=== PATIENT | male | born 1945 | race Caucasian/White ===

== ENCOUNTER 2016-05-27 20:02 | Inpatient (IN) | payer OTHER ==
[~2016-05-27] VITALS: Ht 165.1 cm; Wt 109.5 kg
[~2016-05-27 20:02] MED LIST: ASPIRIN E.C.81 M1 PO; Advair HFA 115/21 IH; ERGOCALCIF50000 UNIT PO; FEOSOL325 MG PO; FLOMAX0.4 MG PO; FUROSEMIDE40 MG PO; Flomax PO; ISOSORBIDE MONO30 MG PO; ISOSORBIDE MONO60 MG PO; KEFLEX500 MG PO; LANTUS 10100 UNITS/ SC; LANTUS 3 M100 UNITS/ SC; LASIX20 MG PO; LASIX40 MG PO; LOPRESSOR25 MG PO; NEXIUM20 MG PO; NITROSTAT0.4 MG SL; NOVOLOG 10100 UNITS/ SC; NOVOLOG PE100 UNITS/ SC; PERCOCET 5/31 TABLET PO; PRAVASTATIN SOD40 MG PO; PREDNISONE10 MG PO; SENOKOT S,PE1 TABLET PO; ST. JOSEPH ASPI81 MG PO; TOPROL XL25 MG PO; TRADJENTA5 MG PO; Tylenol Regular Stre PO; ULORIC40 MG PO; VIAGRA50 MG PO; Vitamin D, Drisdol PO; Zocor PO; [UNRECOGNIZED DRUG - OTHER] PO; oxyCODONE PO
[2016-05-27 20:55] LABS: HEMATOCRIT 30.1 % (38.0-50.0); MCH 27.7 PG (29.0-34.0); MCHC 32.9 G/DL (30.0-36.0); MCV 84.3 FL (86-99); MEAN PLAT.VOLUME 9.4 uM^3 (9.0-12.4); PLATELET COUNT 319 K/uL (156-360); RBC DIS.WIDTH-CV 14.1 % (11.8-14.6); RBC DIS.WIDTH-SD 41.5 % (39-53); RED BLOOD COUNT 3.57 M/uL (4.00-5.50); WHITE BLOOD COUNT 8.3 K/uL (4.1-10.2)
[2016-05-27 21:04] LABS: CHLORIDE 98 mEq/L (99-109); POTASSIUM 4.3 mEq/L (3.7-5.4); SODIUM 131 mEq/L (136-147)
[2016-05-27 21:05] LABS: GLUCOSE 305 mg/dL (70-99)
[2016-05-27 21:07] LABS: ANION GAP 13 MEQ/L (2-14)
[2016-05-27 21:09] LABS: GFR ESTIMATE (CALCULATED) 20 mL/min/
[2016-05-27 21:10] LABS: UREA NITROGEN (BUN) 72 mg/dL (9-23)
[2016-05-27 22:20] LABS: ADD MIUA? YES; BILIRUBIN NEGATIVE; BLOOD NEGATIVE; COLOR YELLOW ((YELLOW)); GLUCOSE (STRIP) NEGATIVE; KETONES NEGATIVE; LEUKOCYTES NEGATIVE; NITRITE NEGATIVE; PH, URINE 5.5 (5-8); PROTEIN (STRIP) TRACE; SPECIFIC GRAVITY 1.019 (1.000-1.030); UROBILINOGEN 0.2 MG/DL (0.2-1.0)
[2016-05-27 22:32] LABS: BACTERIA NONE SEEN; CASTS NONE SEEN /LPF; CRYSTALS NONE SEEN; EPITHELIAL CELLS RARE; MUCUS NONE SEEN; PATHOLOGICAL CAST NONE SEEN; SMALL ROUND CELL NONE SEEN; UCUL ADDED? NO; WHITE BLOOD CELLS 0-5 /HPF (0-5); YEAST-LIKE CELL NONE SEEN
[2016-05-27 22:33] LABS: CARBON DIOXIDE (BICARBONATE) 25.1 MEQ/L (20-31)
[2016-05-27 23:07] VITALS: BP 125/68
[2016-05-27] MEDS ORDERED: NOVOLOG 10100 UNITS/ SC (23:15)
[2016-05-27] MEDS ORDERED: CIPRO500 MG PO (23:16)
[2016-05-27] MEDS ORDERED: CALCITRIOL0.25 MCG PO (23:16)
[2016-05-27 23:33] VITALS: BP 116/65
[2016-05-28] VITALS (14 sets, daily range): BP systolic 118–149; BP diastolic 57–78
[2016-05-28 02:00] LABS: EOSINOPHIL (%) 1.6 % (0-5); EOSINOPHIL COUNT 0.1 K/uL (0-0.3); IMMATURE GRANULOCYTE (%) 0.4 % (0.0-0.7); LYMPHOCYTE COUNT 0.9 K/uL (1.0-2.8); MONOCYTE (%) 11.2 % (3-12); MONOCYTE COUNT 0.9 K/uL (0-0.8); NEUTROPHIL (%) 75.2 % (45-76); NEUTROPHIL COUNT 6.1 K/uL (1.8-6.4)
[2016-05-28 02:31] LABS: POINT-OF-CARE USER ID AHSUCEG
[2016-05-28 07:01] LABS: MCHC 32.1 G/DL (30.0-36.0); MCV 84.3 FL (86-99); MEAN PLAT.VOLUME 9.5 uM^3 (9.0-12.4); PLATELET COUNT 307 K/uL (156-360); RBC DIS.WIDTH-CV 14.5 % (11.8-14.6); RBC DIS.WIDTH-SD 44.5 % (39-53); RED BLOOD COUNT 3.44 M/uL (4.00-5.50); WHITE BLOOD COUNT 8.2 K/uL (4.1-10.2)
[2016-05-28 07:13] LABS: EOSINOPHIL (%) 2.9 % (0-5); EOSINOPHIL COUNT 0.2 K/uL (0-0.3); IMMATURE GRANULOCYTE (%) 0.2 % (0.0-0.7); LYMPHOCYTE COUNT 2.1 K/uL (1.0-2.8); MONOCYTE COUNT 1.4 K/uL (0-0.8); NEUTROPHIL (%) 53.8 % (45-76); NEUTROPHIL COUNT 4.4 K/uL (1.8-6.4)
[2016-05-28 07:18] LABS: ANION GAP 9 MEQ/L (2-14); C-REACTIVE PROTEIN 193.4 MG/L (0-10); CHLORIDE 99 MEQ/L (99-109); GFR ESTIMATE (CALCULATED) 23 mL/min/; POTASSIUM 4.4 MEQ/L (3.7-5.4); SAMPLE HEMOLYSIS CHECK 0; SAMPLE ICTERIC CHECK 0; SAMPLE LIPEMIA CHECK 0; SODIUM 132 MEQ/L (136-147); UREA NITROGEN (BUN) 70 mg/dL (9-23)
[2016-05-28 07:20] LABS: GLUCOSE 134 mg/dL (70-99)
[2016-05-28 08:57] LABS: ERTH.SED.RATE 48 MM/HR (0-20)
[2016-05-29] VITALS: BP 136/65
[2016-05-29 06:32] LABS: HEMATOCRIT 28.5 % (38.0-50.0); MCH 26.8 PG (29.0-34.0); MCHC 31.9 G/DL (30.0-36.0); MCV 83.8 FL (86-99); MEAN PLAT.VOLUME 9.2 uM^3 (9.0-12.4); PLATELET COUNT 338 K/uL (156-360); RBC DIS.WIDTH-CV 14.3 % (11.8-14.6); RBC DIS.WIDTH-SD 44.1 % (39-53); WHITE BLOOD COUNT 6.3 K/uL (4.1-10.2)
[2016-05-29 06:52] LABS: ALKALINE PHOSPHATASE 48 IU/L (3-129); ANION GAP 11 MEQ/L (2-14); CHLORIDE 100 MEQ/L (99-109); GFR ESTIMATE (CALCULATED) 21 mL/min/; GLUCOSE 140 mg/dL (70-99); POTASSIUM 4.4 MEQ/L (3.7-5.4); SAMPLE HEMOLYSIS CHECK 0; SAMPLE ICTERIC CHECK 0; SAMPLE LIPEMIA CHECK 0; SODIUM 133 MEQ/L (136-147); TOTAL BILIRUBIN 0.4 MG/DL (0.0-1.0); UREA NITROGEN (BUN) 70 mg/dL (9-23)
[2016-05-29 07:06] LABS: EOSINOPHIL (%) 6.2 % (0-5); EOSINOPHIL COUNT 0.4 K/uL (0-0.3); IMMATURE GRANULOCYTE (%) 0.3 % (0.0-0.7); LYMPHOCYTE COUNT 1.5 K/uL (1.0-2.8); MONOCYTE (%) 21.7 % (3-12); MONOCYTE COUNT 1.4 K/uL (0-0.8); NEUTROPHIL (%) 48.5 % (45-76); NEUTROPHIL COUNT 3.1 K/uL (1.8-6.4)
[2016-05-29 07:20] VITALS: BP 113/58
[2016-05-29 10:07] LABS: URIC ACID 6.9 mg/dL (3.1-9.2)
[2016-05-29 11:20] VITALS: BP 120/62
[2016-05-29 15:40] VITALS: BP 104/56
[2016-05-29 23:46] VITALS: BP 131/64
[2016-05-30 06:30] LABS: ANION GAP 9 MEQ/L (2-14); CHLORIDE 102 MEQ/L (99-109); GFR ESTIMATE (CALCULATED) 20 mL/min/; POTASSIUM 4.1 MEQ/L (3.7-5.4); SAMPLE HEMOLYSIS CHECK 0; SAMPLE ICTERIC CHECK 0; SAMPLE LIPEMIA CHECK 0; SODIUM 134 MEQ/L (136-147); UREA NITROGEN (BUN) 71 mg/dL (9-23)
[2016-05-30 06:31] LABS: GLUCOSE 100 mg/dL (70-99)
[2016-05-30 06:45] VITALS: BP 133/72
[2016-05-30 07:46] VITALS: BP 133/72
[2016-05-30 14:58] VITALS: BP 120/71
[2016-05-30 23:26] VITALS: BP 144/66
[2016-05-31 05:48] LABS: ANION GAP 8 MEQ/L (2-14); CHLORIDE 101 MEQ/L (99-109); GFR ESTIMATE (CALCULATED) 21 mL/min/; GLUCOSE 78 mg/dL (70-99); POTASSIUM 4.4 MEQ/L (3.7-5.4); SAMPLE HEMOLYSIS CHECK 0; SAMPLE ICTERIC CHECK 0; SAMPLE LIPEMIA CHECK 0; SODIUM 133 MEQ/L (136-147); UREA NITROGEN (BUN) 70 mg/dL (9-23)
[2016-05-31 07:52] VITALS: BP 121/60
[2016-05-31 15:37] VITALS: BP 145/81
[2016-05-31 23:16] VITALS: BP 163/75
[2016-06-01 07:42] LABS: ANION GAP 8 MEQ/L (2-14); CHLORIDE 99 MEQ/L (99-109); SAMPLE HEMOLYSIS CHECK 1; SAMPLE ICTERIC CHECK 0; SAMPLE LIPEMIA CHECK 0; SODIUM 130 MEQ/L (136-147); UREA NITROGEN (BUN) 67 mg/dL (9-23)
[2016-06-01 07:58] VITALS: BP 144/70
[2016-06-01 08:00] LABS: GFR ESTIMATE (CALCULATED) 27 mL/min/; GLUCOSE 188 mg/dL (70-99)
[2016-06-01 08:01] LABS: VANCOMYCIN, TROUGH 12.6 MCG/ML (10-20)
[2016-06-01] MEDS ORDERED: DYNAPEN 250 MG250 MG PO (12:31)
[2016-06-01] MEDS ORDERED: OXYCODONE HCL5 MG PO (12:31)
[2016-06-01] MEDS ORDERED: PREDNISONE10 MG PO (12:31)
[2016-06-01] MEDS ORDERED: TYLENOL REGULA325 MG PO (12:43)
[2016-06-01 15:52] VITALS: BP 126/61
== END 2016-06-01 20:14 | disposition home or self-care (01) | DRG 623 ==
LOC: EME 20:02 → EDOF 23:07 → 2EAST 23:07
PROVIDERS: Emergency Medicine; Hospitalist; Internal Medicine; Physician Assistant Medical; Student in an Organized Health Care Education/Training Program
PROC: 0HDMXZZ Extraction of Right Foot Skin, External Approach (ICD-10-PCS; principal; 2016-05-29)
PROC: 0HBMXZZ Excision of Right Foot Skin, External Approach (ICD-10-PCS; 2016-06-01)
DX: E11.621 Type 2 diabetes mellitus with foot ulcer (principal); L03.115 Cellulitis of right lower limb; L97.519 Non-pressure chronic ulcer of other part of right foot with unspecified severity; I13.0 Hypertensive heart and chronic kidney disease with heart failure and stage 1 through stage 4 chronic kidney disease, or unspecified chronic kidney disease; N18.4 Chronic kidney disease, stage 4 (severe); I50.30 Unspecified diastolic (congestive) heart failure; E87.2 Acidosis; E87.1 Hypo-osmolality and hyponatremia; I95.9 Hypotension, unspecified; E11.40 Type 2 diabetes mellitus with diabetic neuropathy, unspecified; E11.21 Type 2 diabetes mellitus with diabetic nephropathy; E11.319 Type 2 diabetes mellitus with unspecified diabetic retinopathy without macular edema; Z79.4 Long term (current) use of insulin; E78.2 Mixed hyperlipidemia; E11.22 Type 2 diabetes mellitus with diabetic chronic kidney disease; G47.33 Obstructive sleep apnea (adult) (pediatric); I73.9 Peripheral vascular disease, unspecified; D63.1 Anemia in chronic kidney disease; N40.0 Benign prostatic hyperplasia without lower urinary tract symptoms; E66.01 Morbid (severe) obesity due to excess calories; E11.610 Type 2 diabetes mellitus with diabetic neuropathic arthropathy; I35.0 Nonrheumatic aortic (valve) stenosis; E11.65 Type 2 diabetes mellitus with hyperglycemia; D50.9 Iron deficiency anemia, unspecified; E55.9 Vitamin D deficiency, unspecified; G89.29 Other chronic pain; M54.5 Low back pain; I25.10 Atherosclerotic heart disease of native coronary artery without angina pectoris; I25.2 Old myocardial infarction; F32.9 Major depressive disorder, single episode, unspecified; Z87.891 Personal history of nicotine dependence; M10.9 Gout, unspecified
CPT/HCPCS: 71020; 73718; 80048; 80053; 80069; 80202; 81003; 82803; 82948; 83605; 84100; 84550; 85025; 85025 91; 85027; 85651; 86140; 87040; 87070; 87075; 87077; 87086; 87186; 87205; 93005; 97530 GP; 99281; 99285; J1644; J1756; J1815; J2543; J3370; J7030; J7050; J7512